=== PATIENT | female | born 1960 | race Caucasian/White ===

== ENCOUNTER 2022-12-01 00:22 | Emergency (ER) | payer OTHER ==
[~2022-12-01] VITALS: Ht 162.6 cm; Wt 73.9 kg
[~2022-12-01 00:22] MED LIST: LIOTHYRONINE SO5 MCG PO; MELOXICAM7.5 MG PO; MULTI-VITAMIN1 EACH PO; PLAQUENIL200 MG PO; Z.0.CELEBREX50 MG; Z.0.NEXIUM20 MG; Z.0.SYNTHROID25 MCG
[2022-12-01 00:52] LABS: BASOPHILS % 0.6 % (0.0-1.0); EOSINOPHILS # (AUTO) 0.1 (0.0-0.4); EOSINOPHILS % 1.1 % (0.0-6.0); HEMATOCRIT 39.6 % (34.2-44.1); HEMOGLOBIN 11.8 g/dL (12.0-16.0); LYMPHOCYTES # (AUTO) 1.3 (1.0-3.2); LYMPHOCYTES % 24.6 % (18.0-39.1); MEAN CORPUSCULAR HEMOGLOBIN 28.8 pg (28-32); MEAN CORPUSCULAR HGB CONC 29.8 g/dL (31-35); MEAN CORPUSCULAR VOLUME 96.6 fL (81-99); MONOCYTES # (AUTO) 0.5 (0.2-0.8); MONOCYTES % 9.5 % (4.4-11.3); NEUTROPHILS # (AUTO) 3.3 (2.1-6.9); NEUTROPHILS % 63.4 % (38.7-80.0); PLATELET COUNT 142 x10e3/uL (140-360); RED CELL DISTRIBUTION WIDTH 14.1 % (11.7-14.4)
[2022-12-01 01:01] LABS: CLARITY,URINE SL CLOUDY (CLEAR); COLOR,URINE YELLOW (YELLOW); KETONES,URINE NEGATIVE (NEGATIVE); LEUKOCYTE ESTERASE ,URINE NEGATIVE (NEGATIVE); NITRITE,URINE NEGATIVE (NEGATIVE); PROTEIN,URINE DIPSTICK NEGATIVE (NEGATIVE); URINE UROBILINOGEN 0.2 mg/dL (0.2 - 1)
[2022-12-01 01:04] LABS: ALANINE AMINOTRANSFERASE 29 IU/L (0-55); ALBUMIN 3.7 g/dL (3.5-5.0); ALBUMIN/GLOBULIN RATIO 1.2 (0.8-2.0); ALKALINE PHOSPHATASE 69 IU/L (40-150); BLOOD UREA NITROGEN 29 mg/dL (7-26); BUN/CREATININE RATIO 35 (6-25); CALCIUM 8.7 mg/dL (8.4-10.2); CARBON DIOXIDE 29 mmol/L (22-29); CREATINE KINASE 76 IU/L (29-168); CREATININE, SERUM 0.82 mg/dL (0.57-1.11); GLUCOSE 127 mg/dL (74-118)
[2022-12-01 01:06] LABS: ANION GAP 12.1 mmol/L (8-16); CHLORIDE 103 mmol/L (98-107); POTASSIUM 4.1 mmol/L (3.5-5.1); SODIUM 140 mmol/L (136-145)
[2022-12-01 01:12] LABS: BACTERIA,URINE MANY /HPF; MUCUS,URINE MANY (RARE)
[2022-12-01 01:13] LABS: EPITHELIAL CELLS,URINE MANY /LPF
[2022-12-01] MEDS ORDERED: IOPAMIDOL 370 MG/ML 100 ML INFUS..BTL INJ ONE (01:37)
== END 2022-12-01 02:04 | disposition home or self-care (01) ==
LOC: ER 00:34
DX: R10.13 Epigastric pain (principal); R11.2 Nausea with vomiting, unspecified
CPT/HCPCS: 36415; 74177; 80053; 81001; 82550; 82553; 83690; 84484; 85025; 93005; 99284; Q9967